=== PATIENT | female | born 1970 | race Caucasian/White ===

== ENCOUNTER 2017-10-25 16:31 | Inpatient (IN) | payer BC ==
[~2017-10-25] VITALS: Ht 165.1 cm; Wt 58.2 kg
[~2017-10-25 16:31] MED LIST: BIO-CEF500 MG PO; COLACE-T100 MG PO; FEMIRON20 MG PO; LEVAQUIN 5500 MG/TA1 PO; NO HOME MEDICATIONS; OYSCO 500500 M1; PRENATAL1 TA1 PO; TYLENOL 325MG325 MG PO; VITAMIN B-6100 MG; VITAMIN D 1001000 IU; ZANTAC 150MG T150 MG PO
[2017-10-25 16:56] VITALS: BP 103/55; PULSE 86; TEMP 101.1
[2017-10-25] MEDS ORDERED: NEURONTIN300 MG/CAP PO (17:02)
[2017-10-25] MEDS ORDERED: ARIMIDEX1 MG PO (17:03)
[2017-10-25 21:04] VITALS: BP 109/55; PULSE 77; TEMP 98.6
[2017-10-25 21:24] LABS: COLLECTION METHOD CLEAN CATCH
[2017-10-25 21:33] LABS: MUCOUS Present /lpf; PH 6 (5-8); URINE APPEARANCE Clear; URINE BACTERIA None Seen /hpf; URINE BILIRUBIN Negative (NEGATIVE); URINE BLOOD Negative (NEGATIVE); URINE COLOR Yellow; URINE GLUCOSE Negative (NEGATIVE); URINE KETONE 2+ (NEGATIVE); URINE LEUKOCYTE ESTERASE 2+ (NEGATIVE); URINE PROTEIN(semi-quant) Negative (NEGATIVE); URINE UROBILINOGEN Negative (NEGATIVE); URINE WBC 20-50 /hpf
[2017-10-26 02:14] VITALS: BP 106/58; PULSE 64; TEMP 98.4
[2017-10-26 05:43] VITALS: BP 127/47; PULSE 62; TEMP 97.9
[2017-10-26 06:52] LABS: BASO % 0.5 % (0.0-2.0); EOS # 0.2 (0.0-0.7); EOS % 2.6 % (0-4.0); GRAN # 3.9 (1.4-6.5); HEMATOCRIT 37.6 % (37.0-47.0); LYMPH # 1.1 (1.2-3.4); MEAN CELL VOLUME 93 fl (80.0-100.0); MEAN CORPUSCULAR HEMOGLOBIN 30 pg (27.0-31.0); MEAN CORPUSCULAR HGB CONC 32 g/dl (33.0-37.0); MEAN PLATELET VOLUME 10.5 fl (7.4-10.4); MONO # 0.5 (0.1-0.6); MONO % 8.4 % (1.7-9.3); PLATELET COUNT 124 K/mm3 (130-400); RED BLOOD COUNT 4.05 M/mm3 (4.10-5.30); WHITE BLOOD COUNT 5.7 K/mm3 (4.8-10.8)
[2017-10-26 07:05] LABS: CALCIUM 8.8 mg/dL (8.4-10.2); CREATININE, serum 0.53 mg/dL (0.52-1.25); POTASSIUM 3.6 mmol/L (3.4-5.0)
[2017-10-26 09:24] VITALS: BP 88/50; PULSE 71; TEMP 98.1
[2017-10-26 12:02] VITALS: BP 92/50
[2017-10-26 13:55] VITALS: BP 96/44; PULSE 70; TEMP 97.9
[2017-10-26] MEDS ORDERED: FLAGYL500 MG PO (17:24)
[2017-10-26] MEDS ORDERED: LEVAQUIN 750MG750 M1 PO (17:25)
== END 2017-10-26 19:00 | disposition home or self-care (01) | DRG 392 ==
LOC: SURG 16:31
PROVIDERS: Physician Assistant
DX: K57.32 Diverticulitis of large intestine without perforation or abscess without bleeding (principal); N39.0 Urinary tract infection, site not specified; R51 Headache; Z85.3 Personal history of malignant neoplasm of breast
CPT/HCPCS: 99239; J1650; J1956; J7030; J7050; Q9967